=== PATIENT | male | born 1950 | race Caucasian/White ===

== ENCOUNTER 2016-02-20 23:21 | Emergency (ER) | payer OTHER, MEDICARE ==
[2016-02-20] MEDS ORDERED: AMOXICILLIN TR/POT CLAVULANATE 500-125 MG TAB PO ONE (23:51)
[2016-02-20] MEDS ORDERED: DIPH/PERTUSS(ACELL)/TETANUS VAC/PF 0.5 ML SYR (>=10YO) IM ONE (23:51)
--- NOTE | 2016-02-20 23:56 | ER Document Report ---
ED General - General Chief Complaint: Hand Injury Stated Complaint: HAND SWOLLEN Mode of Arrival: Ambulatory Information source: Patient Notes: Patient presents to the emergency department with complaints of right hand pain. He reports he was wrestling with his be rottweiler, which weighs approximately 80 lbs, 4 days ago and the dog bit/scratched him several times. He reports they were playing. He reports he wrestles with his dogs all the time is always getting cuts/scratches with no problem. That day he continued playing with the dog in the dirt. He cleaned his hand really well. He is unsure when his last tetanus was. Reports the dog's vaccines are up-to-date. He reports approximately 6 hours ago his right hand started swelling. He denies other symptoms such as fever vomiting diarrhea. Patient is a diabetic. TRAVEL OUTSIDE OF THE [place] IN LAST 30 DAYS: No - HPI Onset: Other - dog bites,scratches four days ago,m swelling 6 hours ago Onset/Duration: Sudden Quality of pain: Achy Severity: Severe Pain Level: 3 Associated symptoms: None Exacerbated by: Denies Relieved by: Denies Similar symptoms previously: No Recently seen / treated by doctor: No - Related Data Allergies/Adverse Reactions: oxycodone HCl [From Percocet] Allergy (Severe, Verified 02/21/16 00:12) Anaphylaxis Past Medical History - General Information source: Patient - Social History Smoking Status: Former Smoker Chew tobacco use (# tins/day): No Frequency of alcohol use: None Drug Abuse: None Family History: CAD Patient has suicidal ideation: No Patient has homicidal ideation: No - Past Medical History Cardiac Medical History: Reports: Hx Coronary Artery Disease, Hx Heart Attack - heart attacks x4, Hx Hypercholesterolemia, Hx Hypertension Pulmonary Medical History: Denies: Hx Asthma, Hx Bronchitis, Hx COPD, Hx Pneumonia Neurological Medical History: Denies: Hx Cerebrovascular Accident, Hx Seizures Endocrine Medical History: Reports: Hx Diabetes Mellitus Type 2 Musculoskeltal Medical History: Reports Hx Arthritis - hands Past Surgical History: Reports: Hx Abdominal Surgery - hernia, Hx Orthopedic Surgery - back, neck, Hx Tonsillectomy - Immunizations Hx Diphtheria, Pertussis, Tetanus Vaccination: Yes Hx Pneumococcal Vaccination: 02/14/11 Review of Systems - Review of Systems Notes: Review HPI for review of systems., All other systems negative Physical Exam - Vital signs Vitals: Temp Pulse Resp BP Pulse Ox 97.7 F 83 14 149/87 H 97 02/20/16 23:27 02/20/16 23:27 02/20/16 23:27 02/20/16 23:27 02/20/16 23:27 - Notes Notes: PHYSICAL EXAMINATION: GENERAL: Well-appearing and in no acute distress HEAD: Atraumatic, normocephalic. EYES: Pupils equal round extraocular movements intact, sclera anicteric, conjunctiva are normal. ENT: nares patent, Moist mucous membranes. NECK: Normal range of motion, supple without lymphadenopathy LUNGS: Respiratory rate, even/unlabored HEART: Regular rate EXTREMITIES: Normal range of motion, opens/closes hand without problems, good cap refill, good radial pulse, c/o pain to right thenar NEUROLOGICAL: Cranial nerves grossly intact. Normal sensory/motor exams. PSYCH: Normal mood, normal affect. SKIN: Warm, Dry, normal turgor, no rashes or lesions noted right thenar with one puncture bite, one scratch, puncture bite in web between right thumb and index finger, one scratch to dorsal right hand. no warmth, swelling noted, slight erythema, good cap refill, good radial pulse. Course - Re-evaluation Re-evalutation: 02/21/16 01:10 Patient was instructed on medications. He was instructed to monitor his hand for signs of worsening infection and to return the emergency department. He was also instructed follow up with his primary care provider for evaluation. - Vital Signs Vital signs: Temp Pulse Resp BP Pulse Ox 97.7 F 83 14 149/87 H 97 02/20/16 23:27 02/20/16 23:27 02/20/16 23:27 02/20/16 23:27 02/20/16 23:27 - Diagnostic Test Radiology reviewed: Image reviewed, Reports reviewed Discharge - Discharge Clinical Impression: Dog bite of right hand Qualifiers: Encounter type: initial encounter Qualified Code(s): S61.451A - Open bite of right hand, initial encounter Condition: Stable Disposition: HOME, SELF-CARE Instructions: Animal Bites ([facility]), Tetanus Immunization Given ([facility]), Augmentin ( [facility]) Additional Instructions: *You have been treated for a dog bite *Take medication as prescribed *Monitor your hand for signs of increasing infection such as increasing pain, redness, swelling, warmth *Follow up with a primary care provider within 3 days *Return to ED for signs of increasing infection, worsening condition, changes, needs Prescriptions: Amoxicillin/Potassium Clav [Augmentin 875-125 Tablet] 1 each PO BID #20 tablet Oxycodone HCl/Acetaminophen [Percocet 5-325 mg Tablet] 1 - 2 tab PO ASDIR PRN # 15 tablet PRN Reason: Forms: Elevated Blood Pressure
[2016-02-21] MEDS ORDERED: OXYCODONE-ACETAMINOPHEN 5-325 MG TABLET PO ONE (00:42)
[2016-02-21] MEDS ORDERED: HYDROCODONE/ACETAMINOPHEN 5-325 MG 6 TAB/DSPK PO PRN (00:43)
[2016-02-21 01:28] VITALS: BP 138/80
== END 2016-02-21 01:28 | disposition home or self-care (01) ==
LOC: ER 23:21
DX: S61.451A Open bite of right hand, initial encounter (principal); M79.641 Pain in right hand; W54.0XXA Bitten by dog, initial encounter; Y93.K9 Activity, other involving animal care; I25.10 Atherosclerotic heart disease of native coronary artery without angina pectoris; I25.2 Old myocardial infarction; I10 Essential (primary) hypertension; E11.9 Type 2 diabetes mellitus without complications; Z87.892 Personal history of anaphylaxis; Z88.5 Allergy status to narcotic agent; Z87.891 Personal history of nicotine dependence
CPT/HCPCS: 90471; 90715; 99283

== ENCOUNTER 2016-03-02 19:16 | Emergency (ER) | payer OTHER, MEDICARE ==
[2016-03-02] MEDS ORDERED: HYDROCODONE/ACETAMINOPHEN 5-325 MG TABLET PO ONE (19:43)
--- NOTE | 2016-03-02 19:43 | ER Document Report ---
ED Medical Screen (RME) - General Stated Complaint: RIGHT ARM LACERATION Mode of Arrival: Ambulatory Information source: Patient Notes: Patient states he was breaking up his dogs from fighting. Dogs immunizations are UTD I have greeted and performed a rapid initial assessment of this patient. A comprehensive ED assessment and evaluation of the patient, analysis of test results and completion of the medical decision making process will be conducted by additional ED providers.. Patient's tetanus currently up-to-date. Patient with multiple lacerations puncture wounds to bilateral upper extremities. TRAVEL OUTSIDE OF THE [place] IN LAST 30 DAYS: No - Related Data Allergies/Adverse Reactions: oxycodone HCl [From Percocet] Allergy (Severe, Verified 02/21/16 00:12) Anaphylaxis Past Medical History - Past Medical History Cardiac Medical History: Reports: Hx Coronary Artery Disease, Hx Heart Attack - heart attacks x4, Hx Hypercholesterolemia, Hx Hypertension Pulmonary Medical History: Denies: Hx Asthma, Hx Bronchitis, Hx COPD, Hx Pneumonia Neurological Medical History: Denies: Hx Cerebrovascular Accident, Hx Seizures Endocrine Medical History: Reports: Hx Diabetes Mellitus Type 2 Musculoskeltal Medical History: Reports Hx Arthritis - hands Past Surgical History: Reports: Hx Abdominal Surgery - hernia, Hx Cardiac Catheterization - 4 stents, Hx Orthopedic Surgery - back, neck, Hx Tonsillectomy - Immunizations Hx Diphtheria, Pertussis, Tetanus Vaccination: Yes Physical Exam - Vital signs Vitals: Temp Pulse Resp BP Pulse Ox 98.2 F 88 18 121/74 97 03/02/16 19:28 03/02/16 19:28 03/02/16 19:28 03/02/16 19:28 03/02/16 19:28 - Skin Notes: Puncture wound, laceration to bilateral upper forearms Course - Vital Signs Vital signs: Temp Pulse Resp BP Pulse Ox 98.2 F 88 18 121/74 97 03/02/16 19:28 03/02/16 19:28 03/02/16 19:28 03/02/16 19:28 03/02/16 19:28
[2016-03-02] MEDS ORDERED: HYDROCODONE/ACETAMINOPHEN 5-325 MG 6 TAB/DSPK PO PRN (20:49)
[2016-03-02] MEDS ORDERED: AMOXICILLIN TR/POT CLAVULANATE 500-125 MG TAB PO ONE (20:50)
--- NOTE | 2016-03-02 20:51 | ER Document Report ---
ED Animal Bite - General Chief Complaint: Dog Bite Stated Complaint: RIGHT ARM LACERATION Time seen by provider: 20:51 Mode of Arrival: Ambulatory Notes: This is a 65-year-old male that presents today with a dog bite injury. Patient stated that the injury occurred 1 hour prior to arrival. He states that he was breaking up a fight between his 2 dogs and in the process sustained injuries to his right hand and left hand. Approximately half centimeter laceration to the right palmar side of hand between the ring and pinky. There is also a quarter centimeter laceration of the right dorsal hand between the ring and middle. Patient has a superficial left distal laceration to the palmar side. Patient denies fever chills nausea vomiting. Both dogs are up-to-date with immunizations. He received a tetanus immunization 2 weeks ago. Patient does take Plavix and aspirin. TRAVEL OUTSIDE OF THE [place] IN LAST 30 DAYS: No - Related Data Allergies/Adverse Reactions: oxycodone HCl [From Percocet] Allergy (Severe, Verified 02/21/16 00:12) Anaphylaxis Past Medical History - General Information source: Patient - Social History Smoking Status: Former Smoker Frequency of alcohol use: None Drug Abuse: None Family History: CAD Patient has suicidal ideation: No Patient has homicidal ideation: No - Past Medical History Cardiac Medical History: Reports: Hx Coronary Artery Disease, Hx Heart Attack - heart attacks x4, Hx Hypercholesterolemia, Hx Hypertension Pulmonary Medical History: Denies: Hx Asthma, Hx Bronchitis, Hx COPD, Hx Pneumonia Neurological Medical History: Denies: Hx Cerebrovascular Accident, Hx Seizures Endocrine Medical History: Reports: Hx Diabetes Mellitus Type 2 Renal/ Medical History: Denies: Hx Peritoneal Dialysis Musculoskeltal Medical History: Reports Hx Arthritis - hands Past Surgical History: Reports: Hx Abdominal Surgery - hernia, Hx Cardiac Catheterization - 4 stents, Hx Orthopedic Surgery - back, neck, Hx Tonsillectomy - Immunizations Hx Diphtheria, Pertussis, Tetanus Vaccination: Yes Hx Pneumococcal Vaccination: 02/14/11 Review of Systems - Review of Systems Constitutional: denies: Chills, Fever EENT: No symptoms reported Cardiovascular: No symptoms reported Respiratory: No symptoms reported Gastrointestinal: No symptoms reported Genitourinary: No symptoms reported Musculoskeletal: See HPI Skin: See HPI Hematologic/Lymphatic: No symptoms reported Neurological/Psychological: No symptoms reported Physical Exam - Vital signs Vitals: Temp Pulse Resp BP Pulse Ox 98.2 F 88 18 121/74 97 03/02/16 19:28 03/02/16 19:28 03/02/16 19:28 03/02/16 19:28 03/02/16 19:28 - General General appearance: Appears well, Alert - HEENT Head: Normocephalic, Atraumatic Eyes: Normal - Respiratory Respiratory status: No respiratory distress Breath sounds: Normal. No: Rales, Rhonchi, Stridor, Wheezing - Cardiovascular Rhythm: Regular Heart sounds: Normal auscultation - Abdominal Bowel sounds: Normal Tenderness: Nontender - Extremities General upper extremity: Normal inspection - On the dorsal right hand approximately a quarter centimeter puncture wound. On the palmar right hand surface between the ring and pinky approximately half a centimeter laceration. On the left palmar hand distal ring finger superficial laceration, Tender General lower extremity: Normal inspection Course - Re-evaluation Re-evalutation: 03/02/16 20:44 X-ray images results were shared with the patient. Images findings do not correlate with clinical findings. He does not complain of tenderness to either extremity. There is no swelling. Patient was advised to return to the emergency department if any swelling developed or loss of pulses. Patient was advised to follow-up with primary care physician as soon as possible. - Vital Signs Vital signs: Temp Pulse Resp BP Pulse Ox 97.8 F 70 18 133/75 H 95 03/02/16 22:05 03/02/16 22:05 03/02/16 22:05 03/02/16 22:05 03/02/16 22:05 Discharge - Discharge Clinical Impression: Animal bite Condition: Good Disposition: HOME, SELF-CARE Additional Instructions: Return to the emergency department if symptoms worsen such as increased swelling , loss of sensation, loss of motor function, purulent discharge, redness,etc. follow-up with primary care physician as soon as possible. Prescriptions: Amoxicillin/Potassium Clav [Augmentin 875-125 Tablet] 1 each PO BID #10 tablet Referrals: DIOGO PEREIRA MD [Primary Care Provider] - Follow up as needed
[2016-03-02 22:07] VITALS: BP 133/75
== END 2016-03-02 22:06 | disposition home or self-care (01) ==
LOC: ER 19:16
DX: S61.451A Open bite of right hand, initial encounter (principal); S61.452A Open bite of left hand, initial encounter; W54.0XXA Bitten by dog, initial encounter; Y92.008 Other place in unspecified non-institutional (private) residence as the place of occurrence of the external cause; E11.9 Type 2 diabetes mellitus without complications; Z88.6 Allergy status to analgesic agent
CPT/HCPCS: 99283

== ENCOUNTER → 2016-04-28 | Outpatient (CLI) | payer OTHER, MEDICARE ==
[2016-04-28 09:47] LABS: ALANINE AMINOTRANSFERASE 125 U/L (21-72); ALBUMIN 4.4 g/dL (3.5-5.0); ALKALINE PHOSPHATASE 96 U/L (38-126); ANION GAP 11 (5-19); ASPARTATE AMINO TRANSFERASE 90 U/L (17-59); BILIRUBIN,TOTAL 0.9 mg/dL (0.2-1.3); BLOOD UREA NITROGEN 11 mg/dL (7-20); CALCIUM 9.7 mg/dL (8.4-10.2); CARBON DIOXIDE 27 mmol/L (22-30); CHLORIDE 104 mmol/L (98-107); CREATININE RESULT 0.75 mg/dL (0.52-1.25); Direct HDL 26 mg/dL (>40); GLUCOSE 131 mg/dL (75-110); POTASSIUM 4.5 mmol/L (3.6-5.0); TOTAL PROTEIN 7.3 g/dL (6.3-8.2)
[2016-04-28 10:01] LABS: DIRECT LDL < 30 mg/dL (<100); TRIGLYCERIDES 1424 mg/dL (<150)
[2016-04-28 14:51] LABS: ABSOLUTE BASOPHILS # (AUTO) 0.1 10^3/uL (0.0-0.2); ABSOLUTE EOSINOPHILS # (AUTO) 0.2 10^3/uL (0.0-0.6); ABSOLUTE LYMPHOCYTES (AUTO) 3.1 10^3/uL (0.5-4.7); ABSOLUTE MONOCYTES (AUTO) 0.7 10^3/uL (0.1-1.4); ABSOLUTE NEUT (AUTO) 4.2 10^3/uL (1.7-8.2); BASOPHILS % (AUTO) 0.7 % (0-2); EOSINOPHILS % (AUTO) 2.3 % (0-6); HEMATOCRIT 48.2 % (37.9-51.0); HEMOGLOBIN 16.6 g/dL (13.5-17.0); HGB HCT DIFFERENCE 1.6; LYMPHOCYTES % (AUTO) 37.3 % (13-45); MEAN CORPUSCULAR HEMOGLOBIN 30.1 pg (27.0-33.4); MEAN CORPUSCULAR HGB CONC 34.4 g/dL (32.0-36.0); MEAN CORPUSCULAR VOLUME 88 fl (80-97); MONOCYTES % (AUTO) 8.1 % (3-13); RED CELL DISTRIBUTION WIDTH 13.7 % (11.5-14.0); SEGMENTED NEUTROPHILS % (AUTO) 51.6 % (42-78); WHITE BLOOD COUNT 8.2 10^3/uL (4.0-10.5)
[2016-04-30 11:40] LABS: CREATININE URINE 163.1 mg/dL (Not Estab.); MICROALBUMIN URINE 56.4 ug/mL (Not Estab.)
== END ==
LOC: OD 07:54
PROVIDERS: ATTEND Family Medicine
DX: E78.2 Mixed hyperlipidemia (principal); E11.42 Type 2 diabetes mellitus with diabetic polyneuropathy; Z79.899 Other long term (current) drug therapy
CPT/HCPCS: 36415; 80053; 80061; 82043; 82570; 83036; 84443; 85025

== ENCOUNTER → 2016-05-19 | Outpatient (CLI) | payer MEDICARE | LOC: RAD 08:55 | PROVIDERS: ATTEND Family Medicine | DX: G45.9 Transient cerebral ischemic attack, unspecified (principal) | CPT/HCPCS: 70547; 70551 ==

== ENCOUNTER 2016-09-08 09:59 | Day surgery (SDC) | payer OTHER, MEDICARE ==
[2016-09-01 11:01] LABS: HEMATOCRIT 51.3 % (37.9-51.0); HEMOGLOBIN 17.5 g/dL (13.5-17.0); HGB HCT DIFFERENCE 1.2; MEAN CORPUSCULAR HEMOGLOBIN 30.5 pg (27.0-33.4); MEAN CORPUSCULAR HGB CONC 34.2 g/dL (32.0-36.0); MEAN CORPUSCULAR VOLUME 89 fl (80-97); RED BLOOD COUNT 5.75 10^6/uL (4.35-5.55); RED CELL DISTRIBUTION WIDTH 13.7 % (11.5-14.0); WHITE BLOOD COUNT 9.7 10^3/uL (4.0-10.5)
[~2016-09-08 09:59] MED LIST: ACETAMINOPHEN 325 MG TABLET PO PRN; LIDOCAINE 0.5% INJ-PF (5 MG/ML) 50 ML SDV INJ PRN; RINGERS SOLUTION,LACTATED 1,000 ML IV PRN
[2016-09-08 11:03] LABS: PROTHROMBIN TIME 12.8 SEC (11.4-15.4)
[2016-09-08 11:04] LABS: PARTIAL THROMBOPLASTIN TIME 38.8 SEC (23.5-35.8)
[2016-09-08] MEDS ORDERED: PROPOFOL INJ 200 MG/20 ML VIAL IV ONE (12:40)
[2016-09-08] MEDS ORDERED: MIDAZOLAM 2 MG/2 ML INJ ONE (12:40)
[2016-09-08] MEDS ORDERED: DIPHENHYDRAMINE HCL 50 MG/ML VIAL IV PRN (13:06)
[2016-09-08] MEDS ORDERED: PROMETHAZINE HCL INJ 25 MG/1 ML VIAL IV PRN ×2 (13:06)
--- NOTE | 2016-09-08 13:48 | Operative Report ---
Operative Report DATE OF SURGERY: 09/08/16 PREOPERATIVE DIAGNOSIS: Personal history of colon polyps POSTOPERATIVE DIAGNOSIS: Same with multiple small sessile polyps. Diverticulosis OPERATION: 1. Total colonoscopy to cecum with photodocumentation. 2. Multiple descending and left colon polypectomies. SURGEON: BEATRICE RYAN ANESTHESIA: LMAC TISSUE REMOVED OR ALTERED: Multiple polyps COMPLICATIONS: None ESTIMATED BLOOD LOSS: Scant INTRAOPERATIVE FINDINGS: See below PROCEDURE: Obtaining informed consent the patient was taken from the preoperative holding area to the main endoscopy suite where monitoring devices were attached to the patient. Plan and surgical timeout were conducted The patient was placed in the left lateral decubitus position with knees to chest. A perianal examination was performed. There was no visible or palpable anorectal pathology. Sphincter tone was felt to be normal. The flexible adult colonoscope was advanced through the anal rectal canal, all the way to the cecum. Utilization of the cecum was achieved and the ileocecal valve, the appendiceal orifice and transillumination of the anterior abdominal wall. This was an excellent study on the well-prepped bowel. The colonoscope was withdrawn slowly and methodically checked and the mucosa carefully. There were scattered diverticuli of the sigmoid colon; there were multiple small sessile polyps some to some 3 and up to 4 mm in diameter but all very flat. One was removed from the ascending colon and approximately 6 from the descending colon and sigmoid colon. Bleeding was negligible. All polypectomies performed with a cold forceps device. Of note the colon was moderately redundant. Findings today, patient will be appropriate candidate for surveillance colonoscopies the scope was slowly withdrawn through the anal rectal canal. Complete visualization of the rectum was achieved with photodocumentation. The scope was withdrawn to the patient's anus. The patient tolerated the procedure well and was taken to the recovery area in stable condition Per surveillance guidelines, patient be an appropriate candidate for follow-up colonoscopy in 3 years
--- NOTE | 2016-09-08 13:54 | PDOC DISCHARGE SUMMARY ---
Discharge Summary (SDC) - Discharge Final Diagnosis: Personal history of colonic polyps Date of Surgery: 09/08/16 Discharge Date: 09/08/16 Condition: Good Treatment or Instructions: [facility] [place] [id number] POST ENDOSCOPY DISCHARGE INSTRUCTIONS 1. Diet: Start clear liquids that a regular diet as tolerated. 2. Resume all preoperative medications. All oral anticoagulants and aspirins can be resumed 24 hours after procedure. 3. If a polypectomy was performed some bleeding per rectum may occur. This should stop within 3 days. If not, please contact the office. 4. If you had a colonoscopy you may experience some bloating and delayed return of normal bowel function for several days, your regular bowel movement pattern should resume within a week. 5. Please contact [facility] at to make an appointment with Dr. Naik for 1 to 3 weeks following procedure. 6. If you have any questions or concerns regarding your care,treatment plan or follow up, please contact our office. 7. Per clinical guidelines we recommend you undergo a repeat colonoscopy in 3 years. Discharge Diet: Regular Discharge Activity: Activity As Tolerated Home Care Assistance: None Needed Report the Following to Your Physician Immediately: Shortness of Breath, Increase in Pain, Fever over 101 Degrees
[2016-09-08 15:40] VITALS: BP 129/79
== END 2016-09-08 15:35 | disposition home or self-care (01) ==
LOC: END 09:59
PROVIDERS: ATTEND Surgery
PROC: 0DBG8ZX Excision of Left Large Intestine, Via Natural or Artificial Opening Endoscopic, Diagnostic (ICD-10-PCS; 2016-09-08)
PROC: 0DBK8ZX Excision of Ascending Colon, Via Natural or Artificial Opening Endoscopic, Diagnostic (ICD-10-PCS; principal; 2016-09-08 12:00)
DX: D12.4 Benign neoplasm of descending colon (principal); K57.30 Diverticulosis of large intestine without perforation or abscess without bleeding; E11.9 Type 2 diabetes mellitus without complications; I70.90 Unspecified atherosclerosis; F43.10 Post-traumatic stress disorder, unspecified; I10 Essential (primary) hypertension; I25.2 Old myocardial infarction; Z73.9 Problem related to life management difficulty, unspecified; Z86.14 Personal history of Methicillin resistant Staphylococcus aureus infection; Z95.5 Presence of coronary angioplasty implant and graft; Z86.73 Personal history of transient ischemic attack (TIA), and cerebral infarction without residual deficits; Z86.69 Personal history of other diseases of the nervous system and sense organs; Z87.891 Personal history of nicotine dependence; Z79.899 Other long term (current) drug therapy; Z79.82 Long term (current) use of aspirin
CPT/HCPCS: 45380; 36415 ×2; 82962; 85027; 85610; 85730; 88305 ×2; J2250; J2704; 810

== ENCOUNTER → 2016-10-25 | Outpatient (CLI) | payer OTHER, MEDICARE ==
[2016-10-25 08:06] LABS: ABSOLUTE EOSINOPHILS # (AUTO) 0.2 10^3/uL (0.0-0.6); ABSOLUTE LYMPHOCYTES (AUTO) 3.3 10^3/uL (0.5-4.7); ABSOLUTE MONOCYTES (AUTO) 0.7 10^3/uL (0.1-1.4); ABSOLUTE NEUT (AUTO) 4.9 10^3/uL (1.7-8.2); BASOPHILS % (AUTO) 0.4 % (0-2); EOSINOPHILS % (AUTO) 1.7 % (0-6); HEMATOCRIT 50.9 % (37.9-51.0); HEMOGLOBIN 17.3 g/dL (13.5-17.0); LYMPHOCYTES % (AUTO) 35.8 % (13-45); MEAN CORPUSCULAR HEMOGLOBIN 30.2 pg (27.0-33.4); MEAN CORPUSCULAR VOLUME 89 fl (80-97); MONOCYTES % (AUTO) 8.1 % (3-13); RED BLOOD COUNT 5.72 10^6/uL (4.35-5.55); RED CELL DISTRIBUTION WIDTH 13.5 % (11.5-14.0); WHITE BLOOD COUNT 9.1 10^3/uL (4.0-10.5)
[2016-10-25 08:16] LABS: ALANINE AMINOTRANSFERASE 47 U/L (21-72); ALBUMIN 4.6 g/dL (3.5-5.0); ALKALINE PHOSPHATASE 87 U/L (38-126); ANION GAP 14 (5-19); ASPARTATE AMINO TRANSFERASE 37 U/L (17-59); BILIRUBIN,DIRECT 0.4 mg/dL (0.0-0.4); BILIRUBIN,TOTAL 0.9 mg/dL (0.2-1.3); BLOOD UREA NITROGEN 16 mg/dL (7-20); CARBON DIOXIDE 26 mmol/L (22-30); CHLORIDE 102 mmol/L (98-107); CHOLESTEROL 189.75 mg/dL (0-200); CREATININE RESULT 1.11 mg/dL (0.52-1.25); Direct HDL 28 mg/dL (>40); GLUCOSE 114 mg/dL (75-110); POTASSIUM 4.6 mmol/L (3.6-5.0); SODIUM 142.3 mmol/L (137-145); TOTAL PROTEIN 7.3 g/dL (6.3-8.2)
[2016-10-25 08:27] LABS: DIRECT LDL 51 mg/dL (<100)
[2016-10-25 08:37] LABS: TRIGLYCERIDES 563 mg/dL (<150)
[2016-10-27 12:38] LABS: CREATININE URINE 159.7 mg/dL (Not Estab.); MICROALBUMIN URINE 9.4 ug/mL (Not Estab.)
== END ==
LOC: OD 07:13
PROVIDERS: ATTEND Family Medicine
DX: E78.2 Mixed hyperlipidemia (principal); E11.51 Type 2 diabetes mellitus with diabetic peripheral angiopathy without gangrene; Z79.899 Other long term (current) drug therapy
CPT/HCPCS: 36415; 80053; 80061; 82043; 82570; 83036; 84443; 85025

== ENCOUNTER → 2017-04-01 | Outpatient (CLI) | payer MEDICARE ==
[2017-04-01 12:23] LABS: ABSOLUTE BASOPHILS # (AUTO) 0.1 10^3/uL (0.0-0.2); ABSOLUTE EOSINOPHILS # (AUTO) 0.2 10^3/uL (0.0-0.6); ABSOLUTE LYMPHOCYTES (AUTO) 3.6 10^3/uL (0.5-4.7); ABSOLUTE MONOCYTES (AUTO) 0.8 10^3/uL (0.1-1.4); ABSOLUTE NEUT (AUTO) 6.4 10^3/uL (1.7-8.2); BASOPHILS % (AUTO) 0.6 % (0-2); EOSINOPHILS % (AUTO) 1.4 % (0-6); HEMATOCRIT 49.5 % (37.9-51.0); LYMPHOCYTES % (AUTO) 32.8 % (13-45); MEAN CORPUSCULAR HEMOGLOBIN 30.1 pg (27.0-33.4); MEAN CORPUSCULAR HGB CONC 34.4 g/dL (32.0-36.0); MEAN CORPUSCULAR VOLUME 87 fl (80-97); MONOCYTES % (AUTO) 7.5 % (3-13); PLATELET COUNT 256 10^3/uL (150-450); RED BLOOD COUNT 5.66 10^6/uL (4.35-5.55); RED CELL DISTRIBUTION WIDTH 13.4 % (11.5-14.0); SEGMENTED NEUTROPHILS % (AUTO) 57.7 % (42-78); TOTAL CELLS COUNTED % (AUTO) 100 %
[2017-04-01 12:30] LABS: APPEARANCE,URINE CLEAR; BILIRUBIN,URINE NEGATIVE (NEGATIVE); COLOR,URINE YELLOW; GLUCOSE, URINE >=500 mg/dL (NEGATIVE); KETONES,URINE NEGATIVE (NEGATIVE); LEUKOCYTE ESTERASE,URINE NEGATIVE (NEGATIVE); NITRITE,URINE NEGATIVE (NEGATIVE); PROTEIN,URINE NEGATIVE (NEGATIVE); UROBILINOGEN,URINE NEGATIVE mg/dL (<2.0)
[2017-04-01 12:41] LABS: ALANINE AMINOTRANSFERASE 44 U/L (21-72); ALBUMIN 4.5 g/dL (3.5-5.0); ALKALINE PHOSPHATASE 65 U/L (38-126); ANION GAP 12 (5-19); ASPARTATE AMINO TRANSFERASE 34 U/L (17-59); BILIRUBIN,DIRECT 0.4 mg/dL (0.0-0.4); BILIRUBIN,TOTAL 0.5 mg/dL (0.2-1.3); BLOOD UREA NITROGEN 11 mg/dL (7-20); CALCIUM 10.5 mg/dL (8.4-10.2); CARBON DIOXIDE 25 mmol/L (22-30); CHLORIDE 105 mmol/L (98-107); GLUCOSE 93 mg/dL (75-110); POTASSIUM 4.6 mmol/L (3.6-5.0); SODIUM 141.6 mmol/L (137-145); TOTAL PROTEIN 7.4 g/dL (6.3-8.2)
== END ==
LOC: OD 11:35
PROVIDERS: ATTEND Family Medicine
DX: Z12.5 Encounter for screening for malignant neoplasm of prostate (principal); E11.42 Type 2 diabetes mellitus with diabetic polyneuropathy; R35.0 Frequency of micturition; Z79.899 Other long term (current) drug therapy
CPT/HCPCS: 36415; 80053; 81001; 83036; 84153; 85025; 87086

== ENCOUNTER 2017-07-21 09:11 | Emergency (ER) | payer OTHER, MEDICARE ==
[2017-07-21 09:17] VITALS: BP 150/81
--- NOTE | 2017-07-21 09:53 | ER Document Report ---
ED Neck/Back Problem - General TRAVEL OUTSIDE OF THE [place] IN LAST 30 DAYS: No - General Chief Complaint: Neck Pain >24hrs old Stated Complaint: SHOULDER/NECK PAIN Time Seen by Provider: 07/21/17 09:41 Notes: Patient is a 66-year-old male who presents to the emergency department today with complaints of neck pain. Patient had a heart catheterization exactly 1 week ago and states he has been "sleeping funny" since then which he attributes to the cause of his pain. Patient states he has tried Tylenol and BenGay for the neck pain which has somewhat relieved his symptoms. Patient states he has also been generally weak since the catheterization without any focal neurological deficits. Patient denies any numbness or tingling in his extremities. (NICOLE RUTLEDGE) Patient also denies any chest pain or shortness of breath. (MICHAEL PHELPS) - Related Data Allergies/Adverse Reactions: oxycodone HCl [From Percocet] Allergy (Severe, Verified 07/21/17 09:52) Anaphylaxis Past Medical History - General Information source: Patient - Social History Smoking Status: Current Every Day Smoker Cigarette use (# per day): Yes Chew tobacco use (# tins/day): No Drug Abuse: None Family History: CAD Patient has suicidal ideation: No Patient has homicidal ideation: No - Past Medical History Cardiac Medical History: Reports: Hx Coronary Artery Disease, Hx Heart Attack - [place] X4, Hx Hypercholesterolemia, Hx Hypertension Pulmonary Medical History: Denies: Hx Asthma, Hx Bronchitis, Hx COPD, Hx Pneumonia Neurological Medical History: Reports: Hx Cerebrovascular Accident - 2010. Denies: Hx Seizures Endocrine Medical History: Reports: Hx Diabetes Mellitus Type 2 Renal/ Medical History: Denies: Hx Peritoneal Dialysis Musculoskeltal Medical History: Reports Hx Arthritis Past Surgical History: Reports: Hx Abdominal Surgery - hernia, Hx Cardiac Catheterization - 4 stents, Hx Orthopedic Surgery - back, neck, Hx Tonsillectomy - Immunizations Hx Diphtheria, Pertussis, Tetanus Vaccination: Yes Hx Pneumococcal Vaccination: 02/14/11 Review of Systems - Review of Systems Constitutional: No symptoms reported EENT: No symptoms reported Cardiovascular: No symptoms reported Respiratory: No symptoms reported Gastrointestinal: No symptoms reported Genitourinary: No symptoms reported Male Genitourinary: No symptoms reported Musculoskeletal: See HPI, Neck pain Skin: No symptoms reported Hematologic/Lymphatic: No symptoms reported Neurological/Psychological: denies: Numbness, Tingling -: Yes All other systems reviewed and negative Physical Exam - Vital signs Vitals: Temp Pulse Resp BP Pulse Ox 98.3 F 71 16 150/81 H 94 07/21/17 09:15 07/21/17 09:15 07/21/17 09:15 07/21/17 09:15 07/21/17 09:15 - Notes Notes: PHYSICAL EXAM GENERAL: Alert, interacts well. No acute distress. HEAD: Normocephalic, atraumatic. EYES: Pupils equal, round, and reactive to light. Extraocular movements intact. ENT: Oral mucosa moist, tongue midline. NECK: Restricted range of motion secondary to pain, left greater than right. Trachea midline. LUNGS: Clear to auscultation bilaterally, no wheezes, rales, or rhonchi. No respiratory distress. HEART: Regular rate and rhythm. No murmurs, gallops, or rubs. ABDOMEN: Soft, non-tender. Non-distended. Bowel sounds present in all 4 quadrants. No guarding, rigidity, or rebound. BACK: Left trapezius tenderness with palpation. EXTREMITIES: Moves all 4 extremities spontaneously. No edema, radial and dorsalis pedis pulses 2/4 bilaterally. No cyanosis. NEUROLOGICAL: Alert and oriented x3. Normal speech. PSYCH: Normal affect, normal mood. SKIN: Warm, dry, normal turgor. No rashes or lesions noted. (NICOLE RUTLEDGE) Also tender palpation bilaterally across the sternocleidomastoid muscles. ( MICHAEL PHELPS) Course - Re-evaluation Re-evalutation: 07/21/17 10:06 Pain is reproducible with palpation and movement, restriction in range of movement is consistent with muscle spasm. EKG is nonischemic. No focal neurologic deficits, nothing to suggest spinal cord impingement. No further blood work will be performed at this time. Patient will be discharged home on muscle relaxers, encouraged to return for red flag symptoms including weakness, numbness or tingling. Also encouraged to return for chest pain or trouble breathing. (MICHAEL PHELPS) - Vital Signs Vital signs: Temp Pulse Resp BP Pulse Ox 98.3 F 71 16 150/81 H 94 07/21/17 09:15 07/21/17 09:15 07/21/17 09:15 07/21/17 09:15 07/21/17 09:15 - EKG Interpretation by Me Additional EKG results interpreted by me: 07/21/17 10:07 EKG shows sinus bradycardia at a rate of 59, left anterior hemiblock, ST segment elevation isolated in V2, no reciprocal changes, no contiguous ST segment elevation, there is poor R-wave progression, no T-wave inversions per my interpretation. (MICHAEL PHELPS) Discharge - Discharge Clinical Impression: Trapezius muscle spasm, Sternocleidomastoid muscle spasm, Neck pain Condition: Stable Disposition: HOME, SELF-CARE Additional Instructions: I prescribed you Robaxin. You may take 500 mg 3 times a day, you may increase this to 1000 or even 1500 mg 3 times a day as needed for pain and difficulty moving your neck. If he develops significant weakness in your arms, numbness or tingling or any new or concerning symptoms please return to emergency department. Today your EKG did not show any signs of a new heart attack. Prescriptions: Methocarbamol [Robaxin 500 mg Tablet] 500 - 1,500 mg PO Q8HP PRN #30 tablet PRN Reason: Muscle Spasms Referrals: DIOGO PEREIRA MD [Primary Care Provider] - Follow up as needed Scribe Attestation: 07/21/17 21:28 I personally performed the services described in the documentation, reviewed and edited the documentation which was dictated to the scribe in my presence, and it accurately records my words and actions. (MICHAEL PHELPS)
--- NOTE | 2017-07-21 11:43 | EKG REPORT ---
SEVERITY:- ABNORMAL ECG - SINUS RHYTHM LEFT ANTERIOR FASCICULAR BLOCK CONSIDER OLD SEPTAL INFARCT : Confirmed by: Divina Becerra MD 21-Jul-2017 11:41:44
== END 2017-07-21 10:00 | disposition home or self-care (01) ==
LOC: ER 09:11
DX: M62.830 Muscle spasm of back (principal); M62.838 Other muscle spasm; M54.2 Cervicalgia; Z98.890 Other specified postprocedural states; F17.210 Nicotine dependence, cigarettes, uncomplicated; I25.10 Atherosclerotic heart disease of native coronary artery without angina pectoris; I25.2 Old myocardial infarction; I10 Essential (primary) hypertension; E11.9 Type 2 diabetes mellitus without complications
CPT/HCPCS: 93005; 93010; 99283

== ENCOUNTER → 2017-07-26 | Outpatient (CLI) | payer MEDICARE, OTHER ==
--- NOTE | 2017-07-26 09:25 | RADIOLOGY REPORT (SQ) ---
EXAM DESCRIPTION: C SP 6 OR MORE VIEWS COMPLETED DATE/TIME: 07/26/2017 7:59 am REASON FOR STUDY: CERVICALGIA M54.2 CERVICALGIA COMPARISON: CT cervical spine 11/01/2015 MRI cervical spine 07/16/2010 Cervical spine plain films 12/26/2008, 06/25/2008 NUMBER OF VIEWS: Seven views. TECHNIQUE: AP, lateral, obliques, flexion, extension, and odontoid radiographic images acquired of t he cervical spine. LIMITATIONS: None. FINDINGS: MINERALIZATION: Normal. ALIGNMENT: Anatomic. FLEXION/EXTENSION: No instability. VERTEBRAE: Vertebral bodies of normal height. DISCS: Post fusion with hardware at C5-6 and C6-7. Mild disc space loss of height at C3-4 and C4-5 w ith minimal anterior osteophyte formation FORAMINA: High-grade right foraminal narrowing at C4-5 and C6-7. Moderate left C3-4 foraminal narrow ing. High-grade left C6-7 foraminal narrowing. LATERAL AND POSTERIOR ELEMENTS: Multilevel facet and uncovertebral hypertrophy. HARDWARE: Anterior discectomy with incorporated bone graft material, fixation plate at C5-6 and C6-7. SOFT TISSUES: No masses or calcifications. Lung apices clear. OTHER: No other significant finding. IMPRESSION: Multilevel foraminal narrowing. Prior fusion at C5-6 and C6-7. NO INSTABILITY ON FLEXION/EXTENSION. TECHNICAL DOCUMENTATION: JOB ID: [id number] [employer]- All Rights Reserved Reading location - IP/workstation name: [email or web address]
== END ==
LOC: OD 07:28
PROVIDERS: ATTEND Family Medicine
DX: M54.2 Cervicalgia (principal); M48.02 Spinal stenosis, cervical region
CPT/HCPCS: 72052

== ENCOUNTER 2017-09-05 10:13 | Emergency (ER) | payer OTHER, MEDICARE ==
[2017-09-05 10:36] VITALS: BP 132/78
--- NOTE | 2017-09-05 10:41 | ER Document Report ---
ED General - General Chief Complaint: High Blood Sugar Stated Complaint: BLOOD SUGAR Time Seen by Provider: 09/05/17 10:33 TRAVEL OUTSIDE OF THE [place] IN LAST 30 DAYS: No - HPI Patient complains to provider of: Elevated blood sugar Notes: Patient coming in for elevated blood sugar. Patient states took issues morning was greater than 250 patient states he normally has sugars in the 140 range patient does admit that he had a pizza pizza last night and did have a rise crispies early this morning for breakfast however forgot to take this medication as usual time. Upon arrival here to the ER denies any chest pain abdominal pain nausea vomiting fever chills diarrhea. Patient Accu-Chek shows blood pressure is now normal. Patient states feeling much better is that his blood pressure is normal think that he had underlying anxiety prior to coming in. Patient resting comfortably upon my evaluation - Related Data Allergies/Adverse Reactions: oxycodone HCl [From Percocet] Allergy (Severe, Verified 07/21/17 09:52) Anaphylaxis Past Medical History - Social History Smoking Status: Current Every Day Smoker Chew tobacco use (# tins/day): No Frequency of alcohol use: None Drug Abuse: None Family History: CAD Patient has suicidal ideation: No Patient has homicidal ideation: No - Past Medical History Cardiac Medical History: Reports: Hx Coronary Artery Disease, Hx Heart Attack - [place] X4, Hx Hypercholesterolemia, Hx Hypertension Pulmonary Medical History: Denies: Hx Asthma, Hx Bronchitis, Hx COPD, Hx Pneumonia Neurological Medical History: Reports: Hx Cerebrovascular Accident - 2010. Denies: Hx Seizures Endocrine Medical History: Reports: Hx Diabetes Mellitus Type 2 Renal/ Medical History: Denies: Hx Peritoneal Dialysis Musculoskeletal Medical History: Reports Hx Arthritis Past Surgical History: Reports: Hx Abdominal Surgery - hernia, Hx Cardiac Catheterization - 4 stents, Hx Orthopedic Surgery - back, neck, Hx Tonsillectomy - Immunizations Hx Diphtheria, Pertussis, Tetanus Vaccination: Yes Hx Pneumococcal Vaccination: 02/14/11 Review of Systems - Review of Systems Constitutional: Other - Elevated blood sugars EENT: No symptoms reported Cardiovascular: No symptoms reported Respiratory: No symptoms reported Gastrointestinal: No symptoms reported Genitourinary: No symptoms reported Male Genitourinary: No symptoms reported Musculoskeletal: No symptoms reported Skin: No symptoms reported Hematologic/Lymphatic: No symptoms reported Neurological/Psychological: No symptoms reported Physical Exam - Vital signs Vitals: Temp Pulse Resp BP Pulse Ox 97.9 F 67 18 132/78 H 96 09/05/17 10:22 09/05/17 10:22 09/05/17 10:22 09/05/17 10:22 09/05/17 10:22 Interpretation: Normal - General General appearance: Appears well, Alert - HEENT Head: Normocephalic, Atraumatic Eyes: Normal Pupils: PERRL - Respiratory Respiratory status: No respiratory distress Chest status: Nontender Breath sounds: Normal Chest palpation: Normal - Cardiovascular Rhythm: Regular Heart sounds: Normal auscultation Murmur: No - Abdominal Inspection: Normal Distension: No distension Bowel sounds: Normal Tenderness: Nontender Organomegaly: No organomegaly - Back Back: Normal, Nontender - Extremities General upper extremity: Normal inspection, Nontender, Normal color, Normal ROM , Normal temperature General lower extremity: Normal inspection, Nontender, Normal color, Normal ROM , Normal temperature, Normal weight bearing. No: Randa's sign - Neurological Neuro grossly intact: Yes Cognition: Normal Orientation: AAOx4 [place]ibrado Coma Scale Eye Opening: Spontaneous [place] Coma Scale Verbal: Oriented [place] Coma Scale Motor: Obeys Commands Librado Coma Scale Total: 15 Speech: Normal Motor strength normal: LUE, RUE, LLE, RLE Sensory: Normal - Psychological Associated symptoms: Normal affect, Normal mood - Skin Skin Temperature: Warm Skin Moisture: Dry Skin Color: Normal Course - Re-evaluation Re-evalutation: 09/05/17 20:08 Patient's physical examination otherwise normal. No critical pathology seen this time. Patient agrees with discharge home follow-up primary care physician. - Vital Signs Vital signs: Temp Pulse Resp BP Pulse Ox 97.9 F 67 18 132/78 H 96 09/05/17 10:22 09/05/17 10:22 09/05/17 10:22 09/05/17 10:22 09/05/17 10:22 - Laboratory Laboratory results interpreted by me: 09/05/17 10:24 POC Glucose 158 H Discharge - Discharge Clinical Impression: Diabetes mellitus type 2 in nonobese, No problem, feared complaint unfounded Condition: Good Disposition: HOME, SELF-CARE Instructions: Diabetes ([facility]), Hyperglycemia ([facility]) Additional Instructions: Please continue taking medication as prescribed same time every day. Follow-up with your primary care physician. At this time your blood sugars are trending down your physical examination shows no critical pathology. We recommend she follow-up with your primary care physician return to ER symptoms worsen. Referrals: DIOGO PEREIRA MD [Primary Care Provider] - Follow up as needed
== END 2017-09-05 10:45 | disposition home or self-care (01) ==
LOC: ER 10:13
DX: E11.9 Type 2 diabetes mellitus without complications (principal); Z79.899 Other long term (current) drug therapy; F17.200 Nicotine dependence, unspecified, uncomplicated; I25.10 Atherosclerotic heart disease of native coronary artery without angina pectoris; I10 Essential (primary) hypertension; Z95.5 Presence of coronary angioplasty implant and graft; Z88.5 Allergy status to narcotic agent
CPT/HCPCS: 82962; 99284

== ENCOUNTER → 2017-09-20 | Outpatient (CLI) | payer OTHER, MEDICARE ==
[2017-09-20 09:40] LABS: ABSOLUTE BASOPHILS # (AUTO) 0.1 10^3/uL (0.0-0.2); ABSOLUTE EOSINOPHILS # (AUTO) 0.2 10^3/uL (0.0-0.6); ABSOLUTE LYMPHOCYTES (AUTO) 2.6 10^3/uL (0.5-4.7); ABSOLUTE MONOCYTES (AUTO) 0.5 10^3/uL (0.1-1.4); ABSOLUTE NEUT (AUTO) 4.2 10^3/uL (1.7-8.2); BASOPHILS % (AUTO) 0.7 % (0-2); EOSINOPHILS % (AUTO) 2.1 % (0-6); HEMATOCRIT 47.7 % (37.9-51.0); HEMOGLOBIN 16.3 g/dL (13.5-17.0); LYMPHOCYTES % (AUTO) 34.7 % (13-45); MEAN CORPUSCULAR HEMOGLOBIN 30.4 pg (27.0-33.4); MEAN CORPUSCULAR HGB CONC 34.1 g/dL (32.0-36.0); MEAN CORPUSCULAR VOLUME 89 fl (80-97); MONOCYTES % (AUTO) 6.9 % (3-13); PLATELET COUNT 198 10^3/uL (150-450); RED BLOOD COUNT 5.36 10^6/uL (4.35-5.55); RED CELL DISTRIBUTION WIDTH 13.8 % (11.5-14.0); SEGMENTED NEUTROPHILS % (AUTO) 55.6 % (42-78); TOTAL CELLS COUNTED % (AUTO) 100 %; WHITE BLOOD COUNT 7.5 10^3/uL (4.0-10.5)
[2017-09-20 10:03] LABS: ALANINE AMINOTRANSFERASE 47 U/L (21-72); ALBUMIN 4.1 g/dL (3.5-5.0); ALKALINE PHOSPHATASE 88 U/L (38-126); ANION GAP 14 (5-19); ASPARTATE AMINO TRANSFERASE 30 U/L (17-59); BILIRUBIN,DIRECT 0.4 mg/dL (0.0-0.4); BILIRUBIN,TOTAL 0.5 mg/dL (0.2-1.3); BLOOD UREA NITROGEN 14 mg/dL (7-20); CALCIUM 9.1 mg/dL (8.4-10.2); CARBON DIOXIDE 23 mmol/L (22-30); CHLORIDE 107 mmol/L (98-107); GLUCOSE 171 mg/dL (75-110); POTASSIUM 4.5 mmol/L (3.6-5.0); SODIUM 144.2 mmol/L (137-145); TOTAL PROTEIN 6.8 g/dL (6.3-8.2)
== END ==
LOC: OD 08:21
PROVIDERS: ATTEND Family Medicine
DX: R53.83 Other fatigue (principal)
CPT/HCPCS: 36415; 80053; 85025

== ENCOUNTER → 2018-02-16 | Outpatient (CLI) | payer MEDICARE ==
--- NOTE | 2018-02-16 11:51 | RADIOLOGY REPORT (SQ) ---
EXAM DESCRIPTION: CHEST PA/LATERAL COMPLETED DATE/TIME: 02/16/2018 11:39 am REASON FOR STUDY: PNEUMONIA COMPARISON: CHEST FILMS 10/04/2013, 07/24/2011 EXAM PARAMETERS: NUMBER OF VIEWS: two views TECHNIQUE: Digital Frontal and Lateral radiographic views of the chest acquired. RADIATION DOSE: NA LIMITATIONS: none FINDINGS: LUNGS AND PLEURA: No opacities, masses or pneumothorax. No pleural effusion. MEDIASTINUM AND HILAR STRUCTURES: No masses or contour abnormalities. HEART AND VASCULAR STRUCTURES: Heart normal size. No evidence for failure. Left coronary stent BONES: No acute findings. Lower cervical fusion hardware HARDWARE: None in the chest. OTHER: No other significant finding. IMPRESSION: NO SIGNIFICANT RADIOGRAPHIC FINDING IN THE CHEST. TECHNICAL DOCUMENTATION: JOB ID: [id number] [employer] All Rights Reserved Reading location - IP/workstation name: [email or web address]
--- NOTE | 2018-02-16 11:52 | RADIOLOGY REPORT (SQ) ---
EXAM DESCRIPTION: HIPS BILATERAL COMPLETED DATE/TIME: 02/16/2018 11:39 am REASON FOR STUDY: BILATERAL HIP PAIN M25.552 PAIN IN LEFT HIP M25.551 PAIN IN RIGHT HIP J18.9 PNE UMONIA, UNSPECIFIED ORGANISM COMPARISON: None. NUMBER OF VIEWS: Two views TECHNIQUE: AP pelvis and additional frog-leg view of both hips. LIMITATIONS: None. FINDINGS: MINERALIZATION: Normal. HIPS: No acute fracture or dislocation. No worrisome bone lesions. Mild bilateral hip joint space na rrowing and bony spurring. PELVIS AND SACRUM: No acute fracture or dislocation. No worrisome bone lesions. PUBIS AND ISCHIUM: No acute fracture. LOWER LUMBAR SPINE: Lower lumbar facet arthropathy SOFT TISSUES: No findings. OTHER: No other significant finding. IMPRESSION: Mild bilateral hip joint space narrowing and bony spurring. TECHNICAL DOCUMENTATION: JOB ID: [id number] [employer]- All Rights Reserved Reading location - IP/workstation name: [facility]
== END ==
LOC: OD 11:02
PROVIDERS: ATTEND Family Medicine
DX: M25.552 Pain in left hip (principal); M25.551 Pain in right hip; J18.9 Pneumonia, unspecified organism
CPT/HCPCS: 71046; 73522

== ENCOUNTER → 2018-02-19 | Outpatient (CLI) | payer MEDICARE ==
--- NOTE | 2018-02-19 13:47 | RADIOLOGY REPORT (SQ) ---
EXAM DESCRIPTION: MRI LUMBAR SPINE WITHOUT COMPLETED DATE/TIME: 02/19/2018 10:07 am REASON FOR STUDY: LUMBAR RADICULOPATHY M54.16 M54.16 RADICULOPATHY, LUMBAR REGION COMPARISON: 2008. TECHNIQUE: Sagittal and Axial imaging includes T1, T2, STIR and gradient echo sequences. Coronal T2/ HASTE imaging. LIMITATIONS: None. FINDINGS: VISUALIZED UPPER ABDOMEN: Limited evaluation. No acute or suspicious findings suggested. SEGMENTATION: No transitional anatomy. The lowest well-developed disc space is labeled L5-S1. ALIGNMENT: Minimal scoliotic curve. Mild grade 1 listhesis at L4-5. VERTEBRAE: Maintained heights. BONE MARROW: Minimal endplate edema inferior L2. Marrow and soft tissue edema related to the L4 and L5 posterior elements. DISC SIGNAL: Diminished signal. Diminished height at L2-3. POSTERIOR ELEMENTS: Dorsal decompression at L2-3. Lower lumbar facet arthropathy otherwise. HARDWARE: None in the spine. CORD AND CONUS: Normal in size and signal intensity. Conus at the appropriate level. SOFT TISSUES: Soft tissue edema along the lower deep dorsal paraspinal soft tissues without drainable fluid. No evidence of paraspinal mass or aortic aneurysm. L1-L2: Mild disc disease with a small central protrusion but no stenosis. L2-L3: Postoperative changes as above. There is what appears to be a recurrent right paracentral dis c hernia exerting regional mass-effect. Probable slight inferior extrusion within the lateral recess . There is heterogeneous tissue in the left neural foramen which was probably present previously and presumably postoperative. L3-L4: Mild bilateral foraminal narrowing. L4-L5: Mild malalignment as above. Facet and disc disease with overall mild central stenosis. Fairl y marked bilateral foraminal subarticular narrowing. L5-S1: Moderate subarticular foraminal encroachment. LOWER THORACIC: Incompletely imaged. No stenosis seen. SACRUM: Visualized upper sacrum intact. OTHER: No other significant findings. IMPRESSION: 1. Postoperative changes at L2-3. There appears to be a E recurrent disc hernia here, right paracent ral inferior extrusion. Detailed as above. 2. Marrow edema and soft tissue edema along the lower posterior elements at L4 and L5. The patient h as had recent fall. Difficult to exclude a fracture through this area, particularly in light of pre- existing facet arthropathy. This area look more normal on previous MRI from 2008. Consider CT of th e lumbar spine to further evaluate. TECHNICAL DOCUMENTATION: JOB ID: [id number] [employer]- All Rights Reserved Reading location - IP/workstation name: [email or web address]
== END ==
LOC: RAD 09:20
PROVIDERS: ATTEND Family Medicine
DX: M54.16 Radiculopathy, lumbar region (principal)
CPT/HCPCS: 72148

== ENCOUNTER → 2018-03-08 | Outpatient (CLI) | payer MEDICARE ==
[2018-03-08 08:23] LABS: ABSOLUTE BASOPHILS # (AUTO) 0.1 10^3/uL (0.0-0.2); ABSOLUTE EOSINOPHILS # (AUTO) 0.2 10^3/uL (0.0-0.6); ABSOLUTE LYMPHOCYTES (AUTO) 2.9 10^3/uL (0.5-4.7); ABSOLUTE MONOCYTES (AUTO) 0.5 10^3/uL (0.1-1.4); ABSOLUTE NEUT (AUTO) 5.9 10^3/uL (1.7-8.2); BASOPHILS % (AUTO) 0.6 % (0-2); EOSINOPHILS % (AUTO) 2.2 % (0-6); HEMATOCRIT 46.6 % (37.9-51.0); HEMOGLOBIN 16.1 g/dL (13.5-17.0); LYMPHOCYTES % (AUTO) 30.4 % (13-45); MEAN CORPUSCULAR HEMOGLOBIN 30.3 pg (27.0-33.4); MEAN CORPUSCULAR HGB CONC 34.5 g/dL (32.0-36.0); MEAN CORPUSCULAR VOLUME 88 fl (80-97); MONOCYTES % (AUTO) 5.1 % (3-13); PLATELET COUNT 217 10^3/uL (150-450); RED CELL DISTRIBUTION WIDTH 13.8 % (11.5-14.0); SEGMENTED NEUTROPHILS % (AUTO) 61.7 % (42-78); TOTAL CELLS COUNTED % (AUTO) 100 %; WHITE BLOOD COUNT 9.6 10^3/uL (4.0-10.5)
[2018-03-08 08:44] LABS: ALANINE AMINOTRANSFERASE 26 U/L (21-72); ALBUMIN 4.4 g/dL (3.5-5.0); ALKALINE PHOSPHATASE 90 U/L (38-126); ANION GAP 9 (5-19); ASPARTATE AMINO TRANSFERASE 26 U/L (17-59); BILIRUBIN,DIRECT 0.3 mg/dL (0.0-0.4); BILIRUBIN,TOTAL 0.6 mg/dL (0.2-1.3); BLOOD UREA NITROGEN 11 mg/dL (7-20); CALCIUM 9.3 mg/dL (8.4-10.2); CARBON DIOXIDE 28 mmol/L (22-30); CHLORIDE 105 mmol/L (98-107); CHOLESTEROL 190.72 mg/dL (0-200); GLUCOSE 127 mg/dL (75-110); POTASSIUM 4.3 mmol/L (3.6-5.0); SODIUM 142.3 mmol/L (137-145); TOTAL PROTEIN 6.8 g/dL (6.3-8.2)
[2018-03-08 08:56] LABS: TRIGLYCERIDES 723 mg/dL (<150)
[2018-03-08 08:58] LABS: DIRECT LDL 54 mg/dL (<100)
[2018-03-09 12:38] LABS: CREATININE URINE 157.4 mg/dL (Not Estab.); MICROALBUMIN URINE 8.1 ug/mL (Not Estab.)
== END ==
LOC: OD 07:40
PROVIDERS: ATTEND Family Medicine
DX: E78.2 Mixed hyperlipidemia (principal); E11.65 Type 2 diabetes mellitus with hyperglycemia; Z79.899 Other long term (current) drug therapy
CPT/HCPCS: 36415; 80053; 80061; 82043; 82570; 83036; 84443; 85025

== ENCOUNTER → 2018-09-21 | Outpatient (CLI) | payer MEDICARE ==
[2018-09-21 07:49] LABS: ABSOLUTE BASOPHILS # (AUTO) 0.1 10^3/uL (0.0-0.2); ABSOLUTE EOSINOPHILS # (AUTO) 0.2 10^3/uL (0.0-0.6); ABSOLUTE LYMPHOCYTES (AUTO) 2.6 10^3/uL (0.5-4.7); ABSOLUTE MONOCYTES (AUTO) 0.5 10^3/uL (0.1-1.4); BASOPHILS % (AUTO) 0.6 % (0-2); HEMOGLOBIN 16.8 g/dL (13.5-17.0); LYMPHOCYTES % (AUTO) 31.3 % (13-45); MEAN CORPUSCULAR HGB CONC 34.2 g/dL (32.0-36.0); MEAN CORPUSCULAR VOLUME 88 fl (80-97); MONOCYTES % (AUTO) 6.5 % (3-13); PLATELET COUNT 196 10^3/uL (150-450); RED BLOOD COUNT 5.58 10^6/uL (4.35-5.55); RED CELL DISTRIBUTION WIDTH 13.6 % (11.5-14.0); SEGMENTED NEUTROPHILS % (AUTO) 59.6 % (42-78); TOTAL CELLS COUNTED % (AUTO) 100 %; WHITE BLOOD COUNT 8.3 10^3/uL (4.0-10.5)
[2018-09-21 08:27] LABS: ALBUMIN 4.6 g/dL (3.5-5.0); ALKALINE PHOSPHATASE 80 U/L (38-126); ANION GAP 12 (5-19); ASPARTATE AMINO TRANSFERASE 25 U/L (17-59); BILIRUBIN,DIRECT 0.3 mg/dL (0.0-0.4); BILIRUBIN,TOTAL 0.6 mg/dL (0.2-1.3); BLOOD UREA NITROGEN 15 mg/dL (7-20); CALCIUM 9.6 mg/dL (8.4-10.2); CARBON DIOXIDE 27 mmol/L (22-30); CHLORIDE 102 mmol/L (98-107); CHOLESTEROL 216.65 mg/dL (0-200); GLUCOSE 135 mg/dL (75-110); POTASSIUM 4.5 mmol/L (3.6-5.0); TOTAL PROTEIN 7.1 g/dL (6.3-8.2)
[2018-09-21 08:38] LABS: TRIGLYCERIDES 1061 mg/dL (<150)
[2018-09-21 08:39] LABS: DIRECT LDL 42 mg/dL (<100)
[2018-09-22 10:36] LABS: CREATININE URINE 114.2 mg/dL (Not Estab.); MICROALBUMIN URINE 4.4 ug/mL (Not Estab.)
== END ==
LOC: OD 07:10
PROVIDERS: ATTEND Family Medicine
DX: E78.2 Mixed hyperlipidemia (principal); E11.51 Type 2 diabetes mellitus with diabetic peripheral angiopathy without gangrene; Z79.02 Long term (current) use of antithrombotics/antiplatelets
CPT/HCPCS: 36415; 80053; 80061; 82043; 82570; 83036; 84443; 85025

== ENCOUNTER → 2018-12-11 | Outpatient (CLI) | payer MEDICARE ==
[2018-12-11 08:32] LABS: ANION GAP 10 (5-19); BLOOD UREA NITROGEN 14 mg/dL (7-20); CALCIUM 9.4 mg/dL (8.4-10.2); CARBON DIOXIDE 25 mmol/L (22-30); CHLORIDE 104 mmol/L (98-107); GLUCOSE 177 mg/dL (75-110); POTASSIUM 4.2 mmol/L (3.6-5.0)
== END ==
LOC: OD 07:04
PROVIDERS: ATTEND Family Medicine
DX: E11.51 Type 2 diabetes mellitus with diabetic peripheral angiopathy without gangrene (principal)
CPT/HCPCS: 36415; 80048; 83036

== ENCOUNTER 2019-05-04 12:31 | Emergency (ER) | payer OTHER, MEDICARE ==
--- NOTE | 2019-05-04 13:33 | RADIOLOGY REPORT (SQ) ---
EXAM DESCRIPTION: CT CERVICAL SPINE WITHOUT COMPLETED DATE/TIME: 05/04/2019 1:00 pm REASON FOR STUDY: pain COMPARISON: CT cervical spine 11/01/2015 Cervical spine plain films 07/26/2017 TECHNIQUE: Axial images acquired through the cervical spine without intravenous contrast. Images re viewed with lung, soft tissue and bone windows. Reconstructed coronal and sagittal MPR images review ed. Images stored on PACS. All CT scanners at this facility use dose modulation, iterative reconstruction, and/or weight based d osing when appropriate to reduce radiation dose to as low as reasonably achievable (ALARA). [facility]: Dose Right [facility]: CareDose [facility]: Dose Right [facility]: Teradose 4D [facility]: Smart Atlas Local RADIATION DOSE: CT Rad equipment meets quality standard of care and radiation dose reduction techniq ues were employed. CTDIvol: 18.8 mGy. DLP: 430 mGy-cm. mGy. LIMITATIONS: None. FINDINGS: ALIGNMENT: Anatomic. MINERALIZATION: Normal. VERTEBRAL BODIES: No fractures or dislocation. DISCS: Fusion with hardware at C5-6 and C6-7 Craniocervical junction, C1-2 are unremarkable. At C2-3, mild left foraminal narrowing is present from asymmetric facet hypertrophy. At C3-4, broad diffuse posterior disc bulging is present with borderline central canal narrowing. Hi gh-grade bilateral foraminal narrowing is present from facet hypertrophy. At C4-5, high-grade right foraminal narrowing is present from facet hypertrophy. No central or left foraminal narrowing. At C5-6, patient is post discectomy and fusion. Mild bilateral foraminal narrowing. No significant central stenosis. At C6-7, patient is post discectomy and fusion. High-grade bilateral foraminal narrowing. No centra l stenosis. C7-T1 demonstrates no central or foraminal stenosis. Mild bilateral facet hypertrophy. FACETS, LATERAL MASSES, POSTERIOR ELEMENTS: Multilevel arthropathy HARDWARE: Fusion at C5-6 and C6-7 VISUALIZED RIBS: No fractures. LUNG APICES AND SOFT TISSUES: No significant or acute findings. OTHER: No other significant finding. IMPRESSION: Stable multilevel foraminal narrowing. TECHNICAL DOCUMENTATION: JOB ID: [id number] Quality ID # [id number]: Final reports with documentation of one or more dose reduction techniques (e.g., Au tomated exposure control, adjustment of the mA and/or kV according to patient size, use of iterative reconstruction technique) 2010 [employer]- All Rights Reserved Reading location - IP/workstation name: [email or web address]
--- NOTE | 2019-05-04 14:13 | ER Document Report ---
HPI - HPI Time Seen by Provider: 05/04/19 12:41 Onset: Other - This 68-year-old male who had a mechanical fall striking the rear of his occiput he had no loss of consciousness however he did strain his neck he is concerned because he has a cadaver bone and hardware holding his neck in place. Onset/Duration: Sudden Pain Level: 4 Associated Symptoms: None - REPRODUCTIVE Reproductive: DENIES: : Past Medical History - General Information source: Patient - Social History Smoking Status: Current Every Day Smoker Chew tobacco use (# tins/day): No Frequency of alcohol use: None Drug Abuse: None Family History: CAD Patient has suicidal ideation: No Patient has homicidal ideation: No - Past Medical History Cardiac Medical History: Reports: Hx Coronary Artery Disease, Hx Heart Attack - [place] X5, Hx Hypercholesterolemia, Hx Hypertension Pulmonary Medical History: Denies: Hx Asthma, Hx Bronchitis, Hx COPD, Hx Pneumonia Neurological Medical History: Reports: Hx Cerebrovascular Accident - 2010. Denies: Hx Seizures Endocrine Medical History: Reports: Hx Diabetes Mellitus Type 2 Renal/ Medical History: Denies: Hx Peritoneal Dialysis Musculoskeletal Medical History: Reports Hx Arthritis Past Surgical History: Reports: Hx Abdominal Surgery - hernia, Hx Cardiac Catheterization - 5 stents, Hx Orthopedic Surgery - back, neck, Hx Tonsillectomy - Immunizations Hx Diphtheria, Pertussis, Tetanus Vaccination: Yes Hx Pneumococcal Vaccination: 02/14/11 Vertical Provider Document - CONSTITUTIONAL Agree With Documented VS: Yes - INFECTION CONTROL TRAVEL OUTSIDE OF THE [place] IN LAST 30 DAYS: No - RESPIRATORY Respiratory: Breath Sounds Normal - CARDIOVASCULAR Cardiovascular: Regular Rate - GI/ABDOMEN Gastrointestinal: Abdomen Soft Course - Re-evaluation Re-evalutation: 05/04/19 14:09 Immediately upon evaluation patient was placed in a Colton collar. Nurse was told to have the patient placed flat on the gurney he had no neurological deficits distal to the shoulders on either affected side no loss of bowel bladder function ambulatory with a rhythmic and steady gait prior to arrival in the department CT was ordered. - Diagnostic Test Radiology results interpreted by me: 05/04/19 14:[address] 05/04/19 12:42 IMPRESSION: Stable multilevel foraminal narrowing. Discharge - Discharge Clinical Impression: Cervical strain Qualifiers: Encounter type: initial encounter Qualified Code(s): S16.1XXA - Strain of muscle, fascia and tendon at neck level, initial encounter Disposition: HOME, SELF-CARE Additional Instructions: Ice to affected area 4-5 times a day. Must follow-up with PMD in 3 to 5 days. Increase fluid intake rest return to the emergency room for any change worsening. Must follow-up with PMD in 48 hours for definitive radiology interpretation. Prescriptions: Hydrocodone/Acetaminophen [[place] 5-325 Tablet] 1 each PO QID PRN #14 tablet PRN Reason: Referrals: DIOGO PEREIRA MD [Primary Care Provider] - Follow up as needed
[2019-05-04 14:38] VITALS: BP 131/78
== END 2019-05-04 14:36 | disposition home or self-care (01) ==
LOC: ER 12:31
DX: S16.1XXA Strain of muscle, fascia and tendon at neck level, initial encounter (principal); W18.30XA Fall on same level, unspecified, initial encounter; F17.200 Nicotine dependence, unspecified, uncomplicated; I25.10 Atherosclerotic heart disease of native coronary artery without angina pectoris; I25.2 Old myocardial infarction
CPT/HCPCS: 72125; 99283

== ENCOUNTER → 2019-06-14 | Outpatient (CLI) | payer MEDICARE, OTHER ==
[2019-06-14 08:06] LABS: ABSOLUTE BASOPHILS # (AUTO) 0.1 10^3/uL (0.0-0.2); ABSOLUTE EOSINOPHILS # (AUTO) 0.2 10^3/uL (0.0-0.6); ABSOLUTE LYMPHOCYTES (AUTO) 3.2 10^3/uL (0.5-4.7); ABSOLUTE MONOCYTES (AUTO) 0.9 10^3/uL (0.1-1.4); ABSOLUTE NEUT (AUTO) 7.1 10^3/uL (1.7-8.2); BASOPHILS % (AUTO) 0.5 % (0-2); EOSINOPHILS % (AUTO) 1.9 % (0-6); HEMATOCRIT 48.7 % (37.9-51.0); HEMOGLOBIN 17.3 g/dL (13.5-17.0); LYMPHOCYTES % (AUTO) 27.8 % (13-45); MEAN CORPUSCULAR HEMOGLOBIN 31.5 pg (27.0-33.4); MEAN CORPUSCULAR HGB CONC 35.6 g/dL (32.0-36.0); MEAN CORPUSCULAR VOLUME 89 fl (80-97); MONOCYTES % (AUTO) 7.6 % (3-13); PLATELET COUNT 237 10^3/uL (150-450); RED CELL DISTRIBUTION WIDTH 13.6 % (11.5-14.0); SEGMENTED NEUTROPHILS % (AUTO) 62.2 % (42-78); TOTAL CELLS COUNTED % (AUTO) 100 %; WHITE BLOOD COUNT 11.4 10^3/uL (4.0-10.5)
[2019-06-14 08:27] LABS: ALBUMIN 4.7 g/dL (3.5-5.0); ALKALINE PHOSPHATASE 83 U/L (38-126); ANION GAP 10 (5-19); ASPARTATE AMINO TRANSFERASE 27 U/L (17-59); BILIRUBIN,DIRECT 0.1 mg/dL (0.0-0.4); BILIRUBIN,TOTAL 0.7 mg/dL (0.2-1.3); BLOOD UREA NITROGEN 15 mg/dL (7-20); CALCIUM 9.9 mg/dL (8.4-10.2); CARBON DIOXIDE 26 mmol/L (22-30); CHLORIDE 103 mmol/L (98-107); CREATINE KINASE 203 U/L (55-170); GLUCOSE 108 mg/dL (75-110); POTASSIUM 4.3 mmol/L (3.6-5.0); TOTAL PROTEIN 7.5 g/dL (6.3-8.2)
[2019-06-14 08:39] LABS: DIRECT LDL 47 mg/dL (<100)
[2019-06-14 08:42] LABS: TRIGLYCERIDES 724 mg/dL (<150)
[2019-06-15 05:37] LABS: CREATININE URINE 145.6 mg/dL (Not Estab.); MICROALBUMIN URINE 8.6 ug/mL (Not Estab.)
== END ==
LOC: OD 07:09
PROVIDERS: ATTEND Family Medicine
DX: E78.2 Mixed hyperlipidemia (principal); E11.51 Type 2 diabetes mellitus with diabetic peripheral angiopathy without gangrene; Z79.899 Other long term (current) drug therapy
CPT/HCPCS: 36415; 80053; 80061; 82043; 82550; 82570; 83036; 84443; 85025

== ENCOUNTER → 2019-07-27 | Outpatient (CLI) | payer OTHER, MEDICARE ==
--- NOTE | 2019-07-27 09:48 | RADIOLOGY REPORT (SQ) ---
EXAM DESCRIPTION: CHEST PA/LATERAL IMAGES COMPLETED DATE/TIME: 07/27/2019 9:41 am REASON FOR STUDY: PRE-OP COMPARISON: 02/16/2018. EXAM PARAMETERS: NUMBER OF VIEWS: two views TECHNIQUE: Digital Frontal and Lateral radiographic views of the chest acquired. RADIATION DOSE: NA LIMITATIONS: none FINDINGS: LUNGS AND PLEURA: No opacities, masses or pneumothorax. No pleural effusion. MEDIASTINUM AND HILAR STRUCTURES: No masses or contour abnormalities. HEART AND VASCULAR STRUCTURES: Heart normal size. No evidence for failure. BONES: No acute findings. HARDWARE: None in the chest. Hardware in the cervical spine. OTHER: No other significant finding. IMPRESSION: NO SIGNIFICANT RADIOGRAPHIC FINDING IN THE CHEST. TECHNICAL DOCUMENTATION: JOB ID: [id number] 2010 [employer]- All Rights Reserved Reading location - IP/workstation name: [email or web address]
[2019-07-27 10:05] LABS: ABSOLUTE EOSINOPHILS # (AUTO) 0.2 10^3/uL (0.0-0.6); ABSOLUTE LYMPHOCYTES (AUTO) 2.5 10^3/uL (0.5-4.7); ABSOLUTE MONOCYTES (AUTO) 0.5 10^3/uL (0.1-1.4); ABSOLUTE NEUT (AUTO) 5.3 10^3/uL (1.7-8.2); BASOPHILS % (AUTO) 0.4 % (0-2); HEMATOCRIT 49.3 % (37.9-51.0); HEMOGLOBIN 16.9 g/dL (13.5-17.0); LYMPHOCYTES % (AUTO) 29.5 % (13-45); MEAN CORPUSCULAR HEMOGLOBIN 30.8 pg (27.0-33.4); MEAN CORPUSCULAR HGB CONC 34.2 g/dL (32.0-36.0); MEAN CORPUSCULAR VOLUME 90 fl (80-97); MONOCYTES % (AUTO) 5.7 % (3-13); PLATELET COUNT 208 10^3/uL (150-450); RED BLOOD COUNT 5.48 10^6/uL (4.35-5.55); RED CELL DISTRIBUTION WIDTH 13.8 % (11.5-14.0); SEGMENTED NEUTROPHILS % (AUTO) 62.4 % (42-78); TOTAL CELLS COUNTED % (AUTO) 100 %; WHITE BLOOD COUNT 8.5 10^3/uL (4.0-10.5)
[2019-07-27 10:07] VITALS: BP 108/71
[2019-07-27 10:42] LABS: ANION GAP 8 (5-19); BLOOD UREA NITROGEN 14 mg/dL (7-20); CALCIUM 9.5 mg/dL (8.4-10.2); CARBON DIOXIDE 28 mmol/L (22-30); CHLORIDE 104 mmol/L (98-107); GLUCOSE 97 mg/dL (75-110); POTASSIUM 4.9 mmol/L (3.6-5.0)
--- NOTE | 2019-07-27 19:02 | EKG REPORT ---
SEVERITY:- ABNORMAL ECG - SINUS RHYTHM NONSPECIFIC IVCD WITH LAD ANTERIOR INFARCT, AGE INDETERMINATE : Confirmed by: Divina Becerra MD 27-Jul-2019 19:01:47
== END ==
LOC: OD 09:00 → EDSTATUS 08-22 07:30
PROVIDERS: ATTEND Surgery
DX: Z01.818 Encounter for other preprocedural examination (principal); Z03.818 Encounter for observation for suspected exposure to other biological agents ruled out; D36.10 Benign neoplasm of peripheral nerves and autonomic nervous system, unspecified; E11.9 Type 2 diabetes mellitus without complications; I73.9 Peripheral vascular disease, unspecified; I70.90 Unspecified atherosclerosis; R51 Headache; F43.10 Post-traumatic stress disorder, unspecified; I25.2 Old myocardial infarction; Z95.5 Presence of coronary angioplasty implant and graft; Z86.73 Personal history of transient ischemic attack (TIA), and cerebral infarction without residual deficits; Z86.14 Personal history of Methicillin resistant Staphylococcus aureus infection
CPT/HCPCS: 93005; 87635; 80048; 71046; 93010; C9803

== ENCOUNTER → 2019-09-06 | Outpatient (CLI) | payer MEDICARE ==
[2019-09-06 08:07] LABS: ANION GAP 8 (5-19); BLOOD UREA NITROGEN 17 mg/dL (7-20); CALCIUM 9.6 mg/dL (8.4-10.2); CARBON DIOXIDE 25 mmol/L (22-30); CHLORIDE 106 mmol/L (98-107); GLUCOSE 139 mg/dL (75-110); POTASSIUM 4.4 mmol/L (3.6-5.0)
== END ==
LOC: OD 07:04
PROVIDERS: ATTEND Family Medicine
DX: E11.51 Type 2 diabetes mellitus with diabetic peripheral angiopathy without gangrene (principal); E87.1 Hypo-osmolality and hyponatremia; M62.838 Other muscle spasm
CPT/HCPCS: 36415; 80048; 83036; 83735; 83930

== ENCOUNTER 2019-10-04 06:29 | Day surgery (SDC) | payer OTHER, MEDICARE ==
[2019-10-01 09:27] LABS: HEMATOCRIT 47.5 % (37.9-51.0); HEMOGLOBIN 16.1 g/dL (13.5-17.0); MEAN CORPUSCULAR HEMOGLOBIN 30.5 pg (27.0-33.4); MEAN CORPUSCULAR HGB CONC 33.8 g/dL (32.0-36.0); MEAN CORPUSCULAR VOLUME 90 fl (80-97); PLATELET COUNT 224 10^3/uL (150-450); RED BLOOD COUNT 5.28 10^6/uL (4.35-5.55); RED CELL DISTRIBUTION WIDTH 13.5 % (11.5-14.0); WHITE BLOOD COUNT 11.8 10^3/uL (4.0-10.5)
[2019-10-01 09:59] LABS: ANION GAP 7 (5-19); BLOOD UREA NITROGEN 14 mg/dL (7-20); CALCIUM 9.6 mg/dL (8.4-10.2); CARBON DIOXIDE 27 mmol/L (22-30); CHLORIDE 105 mmol/L (98-107); POTASSIUM 5.2 mmol/L (3.6-5.0)
[2019-10-01 10:06] LABS: GLUCOSE 64 mg/dL (75-110)
[~2019-10-04 06:29] MED LIST changes: +LACTATED RINGERS 1000 ML IV PRN; -LIDOCAINE 0.5% INJ-PF (5 MG/ML) 50 ML SDV INJ PRN; +LIDOCAINE 0.5% INJ-PF (5 MG/ML) 50 ML SDV SUBCUT PRN; -RINGERS SOLUTION,LACTATED 1,000 ML IV PRN
[2019-10-04 07:19] LABS: INTERNATIONAL RATION (INR) 0.97; PROTHROMBIN TIME 13.1 SEC (11.4-15.4)
[2019-10-04 07:20] LABS: PARTIAL THROMBOPLASTIN TIME 35.1 SEC (23.5-35.8)
[2019-10-04] MEDS ORDERED: LIDOCAINE 2% INJ (20 MG/ML) 20 ML MDV ONE (07:34)
[2019-10-04] MEDS ORDERED: PROPOFOL INJ 200 MG/20 ML VIAL IV ONE ×2 (07:34→08:11)
--- NOTE | 2019-10-04 08:41 | Discharge Summary ---
Discharge Summary (SDC) - Discharge Final Diagnosis: Multiple colon polyps status post total colonoscopy to cecum with polypectomy x7 Date of Surgery: 10/04/19 Discharge Date: 10/04/19 Condition: Good Forms: EU Anesthesia D/C Instructions, Discharge POC-Surgical Service Treatment or Instructions: NO DRIVING TODAY ADVANCE DIET TOLERATED AVOID GREASY, SPICY, OR FATTY FOODS CALL TO SCHEDULE FOLLOW-UP APPOINTMENT Follow-up with [facility] in 1 to 2 weeks. May resume all preoperative medications as scheduled Referrals: BEATRICE RYAN MD [ACTIVE STAFF] - Discharge Diet: As Tolerated Respiratory Treatments at Home: Deep Breathing/Coughing Discharge Activity: Activity As Tolerated, No Driving Home Care Assistance: None Needed Report the Following to Your Physician Immediately: Shortness of Breath, Nausea, Vomiting, Increase in Pain, Fever over 101 Degrees, Unusual Bleeding, IV Site Infection Signs
--- NOTE | 2019-10-04 08:45 | Operative Report ---
Operative Report DATE OF SURGERY: 10/04/19 PREOPERATIVE DIAGNOSIS: 1. Personal history of colon polyps, including tubular adenomas. 2. Smoker POSTOPERATIVE DIAGNOSIS: Same with multiple left colon and rectosigmoid colon polyps OPERATION: 1. Total colonoscopy to cecum with photodocumentation. 2. Multiple colon polypectomies SURGEON: BEATRICE RYAN ANESTHESIA: LMAC TISSUE REMOVED OR ALTERED: Multiple colon polyps COMPLICATIONS: None ESTIMATED BLOOD LOSS: Scant INTRAOPERATIVE FINDINGS: See below PROCEDURE: Obtaining informed consent the patient was taken from the preoperative holding area to the main endoscopy suite where monitoring devices were attached to the patient. Plan and surgical timeout were conducted. Appropriate level of conscious sedation was induced. The patient was placed in the left lateral decubitus position with knees to chest. A perianal examination was performed. There was no visible or palpable anorectal pathology. Sphincter tone was felt to be normal. The flexible adult colonoscope was advanced through the anal rectal canal, all the way to the cecum. Visualization of the cecum was achieved by demonstration of the ileocecal valve, the appendiceal orifice and transillumination of the anterior abdominal wall. This was an excellent study on the well-prepped bowel. There is a residual amount of watery a yellow fluid easily evacuated. The colonoscope was withdrawn slowly and methodically checked and the mucosa carefully. There was no evidence of tumor, stricture, bleeding. There were multiple small sessile polyps in the left colon, as well as the rectosigmoid area. In the left colon approximately 3 polyps were removed and sent as left colon polyps and labeled accordingly. Polyps removed with the cold forceps device. Bleeding was minimal. In the rectosigmoid area approximately 30-35 cm from the anal verge there were several more polyps, approximately 4 removed. All submitted in the same container labeled sigmoid colon polyps. Bleeding was minimal There was no evidence of diverticuloses. A few small polyps may have been left behind during this exercise. The scope was slowly withdrawn through the anal rectal canal. Complete visualization of the rectum was achieved with photodocumentation. The scope was withdrawn to the patient's anus. The patient tolerated the procedure well and was taken to the recovery area in stable condition. Per surveillance guidelines, patient will be an appropriate candidate for follow-up colonoscopy in [2-3] years.
[2019-10-04 08:55] VITALS: BP 148/89
== END 2019-10-04 08:55 | disposition home or self-care (01) ==
LOC: END 06:29
PROVIDERS: ATTEND Surgery
DX: Z12.11 Encounter for screening for malignant neoplasm of colon (principal); K63.5 Polyp of colon; Z86.010 Personal history of colon polyps; I25.10 Atherosclerotic heart disease of native coronary artery without angina pectoris; I25.2 Old myocardial infarction; I73.9 Peripheral vascular disease, unspecified; I10 Essential (primary) hypertension; F17.210 Nicotine dependence, cigarettes, uncomplicated; E11.9 Type 2 diabetes mellitus without complications; Z88.5 Allergy status to narcotic agent; Z79.01 Long term (current) use of anticoagulants; Z86.14 Personal history of Methicillin resistant Staphylococcus aureus infection; Z95.5 Presence of coronary angioplasty implant and graft; Z03.818 Encounter for observation for suspected exposure to other biological agents ruled out
CPT/HCPCS: 45380; 36415 ×2; 82962; 84132; 85027; 85610; 85730; 87635; 80048; 88305 ×2; 00811; J3490; J2704; C9803; 811

== ENCOUNTER → 2019-11-05 | Outpatient (CLI) | payer OTHER, MEDICARE ==
[2019-11-05 14:19] VITALS: BP 111/55
--- NOTE | 2019-11-05 14:19 | ER RDC ASSESSMENT REPORT ---
Intake - In the Last 14 days Have you traveled outside [place]?: No Have you been in close contact with someone CONFIRMED: No Worked in Healthcare?: No - Symptoms Subjective Fever([place] feverish): No Chills: No Muscule Aches: No Runny Nose: No Sore Throat: Yes Cough (New or worsening chronic cough): Yes Shortness of breath: Yes Nausea or Vomiting: No Headache: No Abdominal Pain: No Diarrhea(3 or more loose stools in last 24 hours): No - Do you have any of the following Chronic lung disease: Asthma or emphysema or COPD: No Cystic Fibrosis: No Diabetes: Yes High Blood Pressure: Yes Cardiovascular Disease: Yes Chronic Kidney Disease: No Chronic Liver Disease: No Chronic blood disorder like Sickle Cell Disease: No Weak immune system due to disease or medication: No Neurologic condition that limits movement: No Developmental delay - Moderate to Severe: No Recent (within past 2 weeks) or current : No Morbid Obesity (>100 pounds over ideal weight): No Obesity Comment: Height 6 feet 0 inches weight 198 pounds Other Comment: has a history of heart attacks x4 - Objective Temperature: 97.5 F Pulse Rate: 57 Respiratory Rate: 16 Blood Pressure: 111/55 O2 Sat by Pulse Oximetry: 95 Objective: Given above, testing performed: If Testing Performed: Test Specimen Type Sent to General - General Information source: Patient Notes: Patient here at [facility] for cover testing patient reports has had a cough and sore throat shortness of breath for a week patient states has lost his voice and laryngitis. Patient's PCP is Dr. Alvarado followed up with her today and was referred to [facility] for covid testing. - Related Data Allergies/Adverse Reactions: oxycodone HCl [From Percocet] Allergy (Severe, Verified 05/04/19 12:39) Anaphylaxis Past Medical History - General Information source: Patient - Social History Smoking Status: Former Smoker - Stopped smoking 1 - 2 months ago. Family History: CAD - Past Medical History Cardiac Medical History: Reports: Hx Coronary Artery Disease, Hx Heart Attack - [place] X5, Hx Hypercholesterolemia, Hx Hypertension Pulmonary Medical History: Denies: Hx Asthma, Hx Bronchitis, Hx COPD, Hx Pneumonia Neurological Medical History: Reports: Hx Cerebrovascular Accident - 2010. De nies: Hx Seizures Endocrine Medical History: Reports: Hx Diabetes Mellitus Type 2 Renal/ Medical History: Denies: Hx Peritoneal Dialysis Musculoskeletal Medical History: Reports Hx Arthritis - DEGENERATIVE DISK DISEASE Past Surgical History: Reports: Hx Abdominal Surgery - hernia, Hx Cardiac Paula terization - 5 stents, Hx Orthopedic Surgery - back, neck, Hx Tonsillectomy Physical Exam - General General appearance: Appears well, Alert In distress: None Notes: PHYSICAL EXAMINATION: GENERAL: Well-appearing and in no acute distress. HEAD: Atraumatic, normocephalic. EYES: sclera anicteric, conjunctiva are normal. ENT: nares patent. Moist mucous membranes. NECK: Normal range of motion, supple without lymphadenopathy LUNGS: CTAB and equal. No wheezes rales or rhonchi. Respirations even and unlabored lung sounds clear. HEART: Regular rate and rhythm without murmurs ABDOMEN: Soft, nontender, normal bowel sounds, no guarding. EXTREMITIES: Normal range of motion, no pitting edema. No cyanosis. NEUROLOGICAL: Cranial nerves grossly intact. Normal speech. Normal gait. PSYCH: Normal mood, normal affect. SKIN: Warm, Dry, normal turgor, no rashes or lesions noted Diagnostic Results Laboratory Results: Patient informed of negative rapid strep results. Pending strep culture pending COVID testing results. Patient provided instructions regarding code to include: As a person under investigation for Covid 19, the [place] department of Health and Human Services, division of public health advises you to adhere to the following guidance until your test results are reported to you. If your test result is positive, you will receive additional information from your provider and your local health department at that time. Remain at home until you are cleared by the health provider or public health authorities. Keep a log of visitors to your home, notify any visitors to your home of your isolation status. If you plan to move to a new address or leave the county, notify the local health department in your County. Call your doctor or seek care if you have an urgent medical need. Before seeking medical care, call ahead to get instructions from the provider before arriving at the medical office clinic or hospital. Notify them that you are being tested for the virus that causes Covid 19 so that arrangements can be made, as necessary, to prevent transmission to others in the healthcare setting. Next, notify the local health department in your county. If a medical emergency arises and you need to call 911, inform the first responders that you are being tested for the virus that causes Covid 19. Next, notify the local health department in your county. Patient Education/Counseling Counseling/Education: Patient presents with upper respiratory symptoms worrisome for possible Covid 19. Patient does not have emergency worring symptoms such as difficulty breathing, shortness of breath, chest pain, pressure, confusion or cyanosis. Patient appears suitable for discharge. Patient instructed to follow-up with PCP Dr. Braswell today. To ED for persistent or worsening symptoms. Patient's vital signs are stable and patient is nontoxic in appearance. Good return precautions have been discussed with patient, patient verbalized understanding and is agreeable with discharge plan of care at this time. C Discharge - Discharge Clinical Impression: Laryngitis Condition: Stable Disposition: Home; Selfcare
== END ==
LOC: RDC 13:33
PROVIDERS: ATTEND Nurse Practitioner Family
DX: J04.0 Acute laryngitis (principal); Z20.828 Contact with and (suspected) exposure to other viral communicable diseases; R05 Cough; R06.02 Shortness of breath; J02.9 Acute pharyngitis, unspecified; I10 Essential (primary) hypertension; E78.00 Pure hypercholesterolemia, unspecified; E11.9 Type 2 diabetes mellitus without complications; I25.10 Atherosclerotic heart disease of native coronary artery without angina pectoris; M13.80 Other specified arthritis, unspecified site; I25.2 Old myocardial infarction; Z88.6 Allergy status to analgesic agent; Z87.891 Personal history of nicotine dependence
CPT/HCPCS: 87070; 87880; 87635; C9803; 99201; 99211